=== PATIENT | female | born 1965 | race Two or more races ===

== ENCOUNTER → 2018-03-27 | Outpatient (CLI) | payer OTHER ==
[~2018-03-27] MED LIST: CEFTIN250 MG PO; FIORICET 50-301 EACH PO; FLEXERIL10 MG PO; KETO10TA2 PO; ORPH100T PO
== END | disposition home or self-care (01) ==
LOC: MAMO-SONO 14:50
DX: Z12.31 Encounter for screening mammogram for malignant neoplasm of breast (principal); N60.11 Diffuse cystic mastopathy of right breast; N60.12 Diffuse cystic mastopathy of left breast

== ENCOUNTER 2018-04-04 07:07 | Outpatient (CLI) | payer OTHER | END 2018-04-04 07:28 | disposition home or self-care (01) | LOC: LAB 07:07 | DX: Z12.11 Encounter for screening for malignant neoplasm of colon (principal); D64.89 Other specified anemias; E03.8 Other specified hypothyroidism; N95.1 Menopausal and female climacteric states; I10 Essential (primary) hypertension; C51.8 Malignant neoplasm of overlapping sites of vulva; N30.00 Acute cystitis without hematuria; E83.51 Hypocalcemia; A64 Unspecified sexually transmitted disease; N39.0 Urinary tract infection, site not specified; R97.8 Other abnormal tumor markers; D50.8 Other iron deficiency anemias; D51.8 Other vitamin B12 deficiency anemias; E78.2 Mixed hyperlipidemia; D68.8 Other specified coagulation defects; R97.0 Elevated carcinoembryonic antigen [CEA] ==

== ENCOUNTER 2018-04-05 10:02 | Outpatient (CLI) | payer OTHER | END 2018-04-05 10:55 | disposition home or self-care (01) | LOC: LAB 10:02 | DX: Z12.11 Encounter for screening for malignant neoplasm of colon (principal); D64.89 Other specified anemias; E03.8 Other specified hypothyroidism; N95.1 Menopausal and female climacteric states; I10 Essential (primary) hypertension; C51.9 Malignant neoplasm of vulva, unspecified; N30.00 Acute cystitis without hematuria; E83.51 Hypocalcemia; A64 Unspecified sexually transmitted disease; N39.0 Urinary tract infection, site not specified; R97.8 Other abnormal tumor markers ==

== ENCOUNTER 2018-04-23 12:24 | Outpatient (CLI) | payer OTHER | END 2018-04-23 13:00 | disposition home or self-care (01) | LOC: NUCLEAR 12:24 | DX: M81.0 Age-related osteoporosis without current pathological fracture (principal) ==

== ENCOUNTER 2018-06-24 07:07 | Outpatient (CLI) | payer OTHER | END 2018-06-24 07:15 | disposition home or self-care (01) | LOC: LAB 07:07 | DX: D24.1 Benign neoplasm of right breast (principal); Z01.812 Encounter for preprocedural laboratory examination; Z01.811 Encounter for preprocedural respiratory examination ==

== ENCOUNTER 2018-12-26 08:38 | Outpatient (CLI) | payer OTHER | END 2018-12-26 08:46 | disposition home or self-care (01) | LOC: MRI 08:38 | DX: M54.5 Low back pain (principal); I10 Essential (primary) hypertension; Z01.810 Encounter for preprocedural cardiovascular examination; E03.8 Other specified hypothyroidism; J45.40 Moderate persistent asthma, uncomplicated; D24.1 Benign neoplasm of right breast | CPT/HCPCS: 72148 ==

== ENCOUNTER 2019-03-21 09:39 | Outpatient (CLI) | payer OTHER | END 2019-03-21 10:40 | disposition home or self-care (01) | LOC: LAB 09:39 | DX: E03.8 Other specified hypothyroidism (principal); I10 Essential (primary) hypertension; Z12.11 Encounter for screening for malignant neoplasm of colon; N30.00 Acute cystitis without hematuria; E83.51 Hypocalcemia; R97.8 Other abnormal tumor markers ==

== ENCOUNTER → 2019-03-23 06:56 | Outpatient (CLI) | payer OTHER | END | disposition home or self-care (01) | LOC: LAB 06:56 | DX: E03.8 Other specified hypothyroidism (principal); E78.49 Other hyperlipidemia; Z12.11 Encounter for screening for malignant neoplasm of colon; N30.00 Acute cystitis without hematuria; E83.51 Hypocalcemia; R97.8 Other abnormal tumor markers; I10 Essential (primary) hypertension ==

== ENCOUNTER 2019-03-30 07:41 | Outpatient (CLI) | payer OTHER | END 2019-03-30 07:50 | disposition home or self-care (01) | LOC: MAMO-SONO 07:41 | DX: D24.1 Benign neoplasm of right breast (principal); Z12.31 Encounter for screening mammogram for malignant neoplasm of breast; Z87.898 Personal history of other specified conditions ==

== ENCOUNTER 2019-08-22 10:18 | Emergency (ER) | payer OTHER ==
[~2019-08-22] VITALS: Ht 157.5 cm; Wt 63.5 kg
[2019-08-22] MEDS ORDERED: SINGULAIR10 MG (10:25)
[2019-08-22] MEDS ORDERED: NEURONTIN300 MG (10:26)
[2019-08-22] MEDS ORDERED: BREO ELLIPTA 21 EACH (10:26)
[2019-08-22] MEDS ORDERED: MEDROLPACK PO (15:29)
[2019-08-22] MEDS ORDERED: CELEBREX200MG PO (15:29)
[2019-08-22] MEDS ORDERED: SKELAXIN800 MG PO (15:29)
== END 2019-08-22 15:36 | disposition home or self-care (01) ==
LOC: ER 10:18
DX: M54.89 Other dorsalgia (principal); M54.5 Low back pain

== ENCOUNTER 2019-09-22 07:40 | Outpatient (CLI) | payer OTHER ==
[~2019-09-22 07:40] MED LIST changes: +BREO ELLIPTA 21 EACH; +CELEBREX200MG PO; +MEDROLPACK PO; +NEURONTIN300 MG; +SINGULAIR10 MG; +SKELAXIN800 MG PO
== END 2019-09-22 07:59 | disposition home or self-care (01) ==
LOC: RAD 07:40
DX: N60.11 Diffuse cystic mastopathy of right breast (principal); M54.2 Cervicalgia; R29.898 Other symptoms and signs involving the musculoskeletal system
CPT/HCPCS: 72141

== ENCOUNTER 2020-05-23 07:18 | Outpatient (CLI) | payer OTHER | END 2020-05-23 07:23 | disposition home or self-care (01) | LOC: MAMO-SONO 07:18 | PROVIDERS: ATTEND Specialist | DX: D24.1 Benign neoplasm of right breast (principal) ==

== ENCOUNTER 2021-01-18 13:20 | Emergency (ER) | payer OTHER ==
[~2021-01-18] VITALS: Ht 157.5 cm; Wt 65.8 kg
[2021-01-18] MEDS ORDERED: OMEPRAZOLE MAGN20 MG PO (16:24)
[2021-01-18] MEDS ORDERED: CARAFATE1 GM PO (16:24)
[2021-01-18] MEDS ORDERED: PEPCID AC20 MG PO (16:24)
== END 2021-01-18 16:41 | disposition home or self-care (01) ==
LOC: ER 13:20
DX: K29.70 Gastritis, unspecified, without bleeding (principal)

== ENCOUNTER 2022-04-26 14:31 | Emergency (ER) | payer OTHER ==
[~2022-04-26] VITALS: Ht 157.5 cm; Wt 64.4 kg
[~2022-04-26 14:31] MED LIST changes: +CARAFATE1 GM PO; +OMEPRAZOLE MAGN20 MG PO; +PEPCID AC20 MG PO
[2022-04-26] MEDS ORDERED: BREO ELLIPTA I1 EACH IH (14:43)
[2022-04-26] MEDS ORDERED: AZELASTINE205.5 MCG/ NASAL (14:44)
[2022-04-26] MEDS ORDERED: ALBUTEROL2.5 MG/3 M IH (14:44)
[2022-04-26] MEDS ORDERED: ST. JOSEPH ASPI81 M2 PO (14:44)
[2022-04-26] MEDS ORDERED: VENTOLIN HFA18 GM IH (14:44)
== END 2022-04-26 19:21 | disposition home or self-care (01) ==
LOC: ER 14:31
DX: J03.90 Acute tonsillitis, unspecified (principal); R05.9 Cough, unspecified

== ENCOUNTER 2022-05-31 08:42 | Emergency (ER) | payer OTHER ==
[~2022-05-31] VITALS: Ht 157.5 cm; Wt 63.5 kg
[~2022-05-31 08:42] MED LIST changes: +ALBUTEROL2.5 MG/3 M IH; +AZELASTINE205.5 MCG/ NASAL; +BREO ELLIPTA I1 EACH IH; +ST. JOSEPH ASPI81 M2 PO; +VENTOLIN HFA18 GM IH
== END 2022-05-31 11:03 | disposition home or self-care (01) ==
LOC: ER 08:42
DX: S09.90XA Unspecified injury of head, initial encounter (principal); S59.902A Unspecified injury of left elbow, initial encounter; W18.30XA Fall on same level, unspecified, initial encounter; Y93.9 Activity, unspecified; Y92.009 Unspecified place in unspecified non-institutional (private) residence as the place of occurrence of the external cause

== ENCOUNTER 2023-03-21 07:13 | Emergency (ER) | payer OTHER ==
[~2023-03-21] VITALS: Ht 157.5 cm; Wt 67.1 kg
== END 2023-03-21 08:53 | disposition home or self-care (01) ==
LOC: ER 07:13
DX: M75.81 Other shoulder lesions, right shoulder (principal)

== ENCOUNTER 2024-05-22 13:43 | Emergency (ER) | payer OTHER ==
[~2024-05-22] VITALS: Ht 157.5 cm; Wt 67.6 kg
[2024-05-22] MEDS ORDERED: BREO ELLIPTA 21 EACH IH (14:23)
[2024-05-22] MEDS ORDERED: KETOROLAC TROMETHAMINE 60 MG VIAL IM STA (15:54)
[2024-05-22] MEDS ORDERED: LEVALBUTEROL HCL 1.25 MG/3 ML SOLUTION IH STA (15:56)
[2024-05-22] MEDS ORDERED: ORPHENADRINE CITRATE 30 MG/ML AMPUL IM STA (15:56)
== END 2024-05-22 17:53 | disposition home or self-care (01) ==
LOC: ER 13:45
DX: G44.209 Tension-type headache, unspecified, not intractable (principal)

== ENCOUNTER 2024-06-01 14:37 | Emergency (ER) | payer OTHER ==
[~2024-06-01] VITALS: Ht 157.5 cm; Wt 65.8 kg
[~2024-06-01 14:37] MED LIST changes: +BREO ELLIPTA 21 EACH IH
[2024-06-01] MEDS ORDERED: CRESTOR40 MG (14:49)
[2024-06-01] MEDS ORDERED: DEXAMETHASONE SODIUM PHOSPHATE 4 MG/ML VIAL IM ONE (17:45)
[2024-06-01] MEDS ORDERED: KETOROLAC TROMETHAMINE 60 MG VIAL IM ONE (17:45)
== END 2024-06-01 18:14 | disposition home or self-care (01) ==
LOC: ER 14:38
DX: R51.9 Headache, unspecified (principal); M26.69 Other specified disorders of temporomandibular joint

== ENCOUNTER 2024-06-04 11:59 | Outpatient (CLI) | payer OTHER ==
[~2024-06-04 11:59] MED LIST changes: +CRESTOR40 MG
== END 2024-06-04 12:17 | disposition home or self-care (01) ==
LOC: MRI 11:59
PROVIDERS: ATTEND Internal Medicine
DX: G43.909 Migraine, unspecified, not intractable, without status migrainosus (principal); G43.119 Migraine with aura, intractable, without status migrainosus; I10 Essential (primary) hypertension; E78.9 Disorder of lipoprotein metabolism, unspecified; E11.51 Type 2 diabetes mellitus with diabetic peripheral angiopathy without gangrene; E11.9 Type 2 diabetes mellitus without complications
CPT/HCPCS: 70551

== ENCOUNTER 2024-10-05 15:39 | Emergency (ER) | payer OTHER ==
[~2024-10-05] VITALS: Ht 157.5 cm; Wt 68.0 kg
[2024-10-05] MEDS ORDERED: AZELASTINE137 MCG/0. NASAL (16:23)
[2024-10-05] MEDS ORDERED: KETOROLAC TROMETHAMINE 30 MG VIAL IM STA (17:58)
[2024-10-05] MEDS ORDERED: KETOROLAC TROMETHAMINE 30 MG VIAL ONE (18:17)
== END 2024-10-05 19:54 | disposition home or self-care (01) ==
LOC: ER 15:41
DX: M79.604 Pain in right leg (principal); M51.369 Other intervertebral disc degeneration, lumbar region without mention of lumbar back pain or lower extremity pain

== ENCOUNTER 2025-03-12 11:46 | Emergency (ER) | payer OTHER ==
[~2025-03-12] VITALS: Ht 160 cm; Wt 65.3 kg
[~2025-03-12 11:46] MED LIST changes: +AZELASTINE137 MCG/0. NASAL
[2025-03-12] MEDS ORDERED: METRONIDAZOLE/SODIUM CHLORIDE 500 MG/100 ML PIGGYBACK IV ONE ×2 (14:33→14:45)
[2025-03-12] MEDS ORDERED: BARIUM SULFATE 450 ML ORAL.SUSP PO ONE (14:34)
[2025-03-12] MEDS ORDERED: MORPHINE SULFATE 2 MG/ML CARTRIDGE IV ONE (14:45)
[2025-03-12 15:03] LABS: URINE APPEARANCE Clear; URINE BILIRRUBIN Negative (NEGATIVE); URINE BLOOD Negative; URINE COLOR Yellow; URINE GLUCOSE Negative (NEGATIVE); URINE KETONE Trace (NEGATIVE); URINE LEUKOCYTE Negative; URINE NITRATE Negative; URINE PROTEIN Negative (NEGATIVE); URINE UROBILINOGEN 0.2 E.U./dl
[2025-03-12 15:03] LABS: BASO % 0.4 % (0.1-1.2); EOS # 0.01 (0.04-0.54); EOS % 0.1 % (0.7-7.0); LYMPH # 1.99 (1.18-3.74); LYMPH % 26.6 % (19.3-53.1); MEAN PLATELET VOLUME 10.50 fl (9.4-12.4); MONO # 0.39 (0.24-0.82); MONO % 5.2 % (4.7-12.5); NEUT # 5.06 (1.56-6.13); NEUT % 67.6 % (34.0-71.1); RED CELL DISTRIBUTION WIDTH 12.1 % (11.6-14.4)
[2025-03-12 15:07] LABS: URINE RBC 8.3 uL (0.0-20.8)
[2025-03-12 15:43] LABS: URINE BACTERIA 1.1 uL (0.0-1933); URINE CAST 0.00 uL (0.0-1.40); URINE EPITHELIAL CELLS 0.1 uL (0.0-38.8); URINE WBC 0.7 uL (0.0-23.2)
[2025-03-12 15:44] LABS: ALT/SGPT 28.0 U/L (12-78); AST/SGOT 14.0 U/L (15-37); BILIRUBIN TOTAL 0.57 mg/dL (0.3-1.2); BUN CREA RATIO 17.0 (7.0-25.0); CREATININE SERUM 0.75 mg/dL (0.55-1.02); GFR 78.56; GLOBULINA 3.4 G/DL (2.4-3.5); GLUCOSE FASTING 99.0 mg/dL (65-100); OSMOLALITY SERUM 287.0 MOSM/KG (275-295)
== END 2025-03-12 19:57 | disposition home or self-care (01) ==
LOC: ER 11:46
PROVIDERS: Emergency Medicine
DX: R10.32 Left lower quadrant pain (principal); Q63.1 Lobulated, fused and horseshoe kidney

== ENCOUNTER 2025-06-25 08:02 | Emergency (ER) | payer OTHER ==
[~2025-06-25] VITALS: Ht 157.5 cm; Wt 65.8 kg
[2025-06-25] MEDS ORDERED: KETOROLAC TROMETHAMINE 60 MG VIAL IM ONE ×2 (08:45→09:18)
[2025-06-25] MEDS ORDERED: CETIRIZINE HCL 5 MG/5 ML ML PO ONE (08:45)
[2025-06-25] MEDS ORDERED: CETIRIZINE HCL 5MG/5ML BLIST.PACK PO ONE (09:19)
[2025-06-25 10:58] LABS: BASO % 0.2 % (0.1-1.2); EOS # 0.00 (0.04-0.54); EOS % 0.0 % (0.7-7.0); LYMPH # 1.39 (1.18-3.74); LYMPH % 24.9 % (19.3-53.1); MEAN PLATELET VOLUME 10.60 fl (9.4-12.4); MONO # 0.26 (0.24-0.82); MONO % 4.7 % (4.7-12.5); NEUT # 3.92 (1.56-6.13); NEUT % 70.0 % (34.0-71.1); RED CELL DISTRIBUTION WIDTH 12.2 % (11.6-14.4)
[2025-06-25 11:05] LABS: COVID-19 AG NEGATIVE (NEGATIVE)
[2025-06-25] MEDS ORDERED: NORFLEX100MG PO (13:14)
[2025-06-25] MEDS ORDERED: SINGULAIR10 MG PO (13:17)
== END 2025-06-25 13:23 | disposition home or self-care (01) ==
LOC: ER 08:03
PROVIDERS: General Practice
DX: M25.562 Pain in left knee (principal); Z87.09 Personal history of other diseases of the respiratory system; Z20.822 Contact with and (suspected) exposure to COVID-19